=== PATIENT | male | born 1990 | race African-American/Black ===

== ENCOUNTER 2022-11-11 02:44 | Emergency (ER) | payer BC ==
[~2022-11-11] VITALS: Ht 188 cm; Wt 82.6 kg
[2022-11-11 02:50] VITALS: BP 123/66
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
--- NOTE | 2022-11-11 03:11 | NUR ---
Patient discharged to home in stable condition. Written and verbal after care instructions given. Patient verbalizes understanding of instruction.
== END 2022-11-11 03:12 | disposition home or self-care (01) ==
LOC: ER 02:47
DX: S00.01XA Abrasion of scalp, initial encounter (principal); W22.8XXA Striking against or struck by other objects, initial encounter; Y93.89 Activity, other specified; Y92.89 Other specified places as the place of occurrence of the external cause; Y99.8 Other external cause status